=== PATIENT | female | born 1950 | race Caucasian/White ===

== ENCOUNTER → 2021-11-18 10:53 | Outpatient (BNVA) | payer MEDICARE, BC, SELFPAY | PROVIDERS: Family Provider Family Medicine Adult Medicine; Visit Provider Internal Medicine Pulmonary Disease | DX: J44.9 Chronic obstructive pulmonary disease, unspecified (principal); Z71.6 Tobacco abuse counseling; R91.1 Solitary pulmonary nodule; F17.210 Nicotine dependence, cigarettes, uncomplicated | CPT/HCPCS: 99204 ==

== ENCOUNTER 2021-11-24 10:55 | Outpatient (CLI) | payer MEDICARE, BC, SELFPAY ==
--- NOTE | 2021-11-24 12:36 | PFTS_ITS ---
Date of Study:11/24/21 Date of Dictation: MECHANICS: Forced vital capacity (FVC) is normal. Forced expiratory volume in one second (FEV1) is reduced. FEV1/FVC is reduced. FLOW VOLUME LOOP: Reduced flow at all lung volumes with significant scooping. LUNG VOLUMES: Total lung capacity (TLC) is increased. Residual volume (RV) is increased. DIFFUSING CAPACITY FOR CARBON MONOXIDE: Severely reduced. INTERPRETATION: The postbronchodilator spirometry is consistent with moderate airflow obstruction. There is no significant postbronchodilator response. Lung volumes are consistent with hyperinflation and air trapping. Gas exchange (DLCO) is severely reduced. The reduction in DLCO is disproportionate to reduction in spirometry. MTDD
== END 2021-11-24 10:56 | disposition home or self-care (01) ==
LOC: RT 11:02
PROVIDERS: Visit Provider Internal Medicine Pulmonary Disease
DX: R91.1 Solitary pulmonary nodule (principal)
CPT/HCPCS: 94060; 94726; 94729

== ENCOUNTER 2021-12-06 07:08 | Day surgery (SDC) | payer MEDICARE, BC, SELFPAY ==
[2021-11-25 10:31] VITALS: BMI 16.0
[2021-12-05 09:59] VITALS: BMI 16.0
[2021-12-06] VITALS (7 sets, daily range): BP systolic 100–182; BP diastolic 57–88; PULSE 78–86; RESP 16–20; TEMP 36.2–37.1; O2SAT 90–99
--- NOTE | 2021-12-06 | CT_ITS ---
Guided Bronchoscopy Planning CT images; total exam DLP: 946.84 mGy-cm MTDD
--- NOTE | 2021-12-06 05:36 | P.ANESASSM_ITS ---
Pre-Anesthetic Assessment Height/Weight: Height 1.63 m Weight 42.184 kg Operation Date: 12/06/21 09:30 Proposed Procedures p Tres(Not Applicable) - Chucho Mendiola MD s Darius(Not Applicable) - Chucho MarquezrMD Social Tobacco Pulmonary Chronic Obstructive Pulmonary Disease and Exertional Dyspnea 11/24/21 PFTs INTERPRETATION: The postbronchodilator spirometry is consistent with moderate airflow obstruction.? There is no significant postbronchodilator response. Lung volumes are consistent with hyperinflation and air trapping. Gas exchange (DLCO) is severely reduced.? The reduction in DLCO is disproportionate to reduction in spirometry. Hemoptysis Weight loss edema left axilla CT 11/11/21 Summarized in Doctor Datar's note Supplemental Info 11/11/21 CT Chest: 1. Centrally necrotic mass in the anteromedial left upper lobe and prevascular space of the mediastinum, with mild mediastinal adenopathy, most consistent with primary lung neoplasm.? PET/CT imaging is recommended. 2. Individualized dose optimization techniques were used for this CT Neuropsych Transient Ischemic Attack (Recent TIA? with vision loss, weakness, fatigue, dyspraxia ) Medications/Allergies Home Medications Medication Instructions Recorded Confirmed Last Taken Type amlodipine 5 mg tablet 5 mg PO DAILY 11/18/21 12/02/21 Unknown History clonazepam 1 mg tablet 1 mg PO TID PRN 11/18/21 12/02/21 Unknown History fluconazole 100 mg tablet 100 mg PO DAILY 11/18/21 12/02/21 Unknown History lisinopril 20 mg tablet See Rx Instructions PO BID 11/18/21 12/02/21 Unknown History metoprolol tartrate 25 mg tablet 25 mg PO DAILY 11/18/21 12/02/21 Unknown History pantoprazole 40 mg tablet,delayed 40 mg PO DAILY tab 11/18/21 12/02/21 Unknown History release promethazine 6.25 mg-codeine 10 5 ml PO Q6H PRN 11/18/21 12/02/21 Unknown History mg/5 mL syrup umeclidinium 62.5 mcg-vilanterol 1 inh INHALATION DAILY #60 ea 11/18/21 12/02/21 Unknown Rx 25 mcg/actuation powdr for inhalation (Anoro Ellipta) prednisone 20 mg tablet 20 mg PO DAILY 5 Days #5 tab 11/28/21 12/02/21 Unknown Rx aspirin 81 mg tablet,delayed 81 mg PO DAILY 12/02/21 12/05/21 12/04/21 History release Allergies Allergy/AdvReac Type Severity Reaction Status Date / Time levofloxacin [From Levaquin] Allergy Unknown Unknown Verified 12/02/21 09:08 theophylline Allergy Unknown Unknown Verified 12/02/21 09:08 [facility] Anesthesia Family History Father , young Cancer colon Mother , young Cancer breast Social History Smoking and tobacco status: current every day smoker Data Anesthesia Cardiac Studies: No Data to Display
--- NOTE | 2021-12-06 07:17 | ECG_ITS ---
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 Measurements Intervals [place] Rate: 74 P: 74 VA: 113 QRS: 85 QRSD: 85 T: 80 QT: 377 QTc: 420 Interpretive Statements SINUS RHYTHM WITH SHORT VA INTERVAL WITH OCCASIONAL SUPRAVENTRICULAR PREMATURE COMPLEXES No previous ECG available for comparison Electronically Signed On 12-07-2021 16:57:53 CDT by Eddie Villarreal M.D. [email or web address] Information Technologymercy health [id number]
[2021-12-06] MEDS: sodium chloride 0.9% 1,000 ML 30 ML IV (07:32)
--- NOTE | 2021-12-06 07:38 | W.PM.OPSUD ---
Surgery/Procedure H&P Update DATE OF PROCEDURE: December 06, 2021 DATE H&P PERFORMED: 11/18/21 CHANGES TO PREVIOUS DOCUMENTATION: Interim pt had PET/CT chest 12/03/2021: In the left upper lobe there is 5.5 x 6.2 cm centrally necrotic mass with early invasion of the mediastinum with SUV 16.3. This has high probability of representing malignancy and biopsy recommended. Secondary nodule in lingula measures 0.9 x 1.2 cm and is without significant uptake. This is much more likely to represent a benign finding. Plan is to do navigational guided biopsies and endobronchial surveillance of mediastinal/hilar lymph nodes PRIMARY INDICATION FOR PROCEDURE: Suspicious for malignancy PLANNED PROCEDURE: Operation Date: 12/06/21 09:30 Proposed Procedures p Veran(Not Applicable) - Chucho Mendiola MD s Ebus(Not Applicable) - Chucho Mendiola MD
--- NOTE | 2021-12-06 07:55 | ANES.PREANE2 ---
Pre-Anesthetic Assessment Height/Weight: Height 1.63 m Weight 42.184 kg Temp Pulse Resp BP Pulse Ox 98.8 F 86 20 H 182/88 98 12/06/21 07:27 12/06/21 07:27 12/06/21 07:27 12/06/21 07:27 12/06/21 07:27 Preop Diagnosis: Concern for malignancy Operation Date: 12/06/21 09:30 Proposed Procedures mariano Joshua(Not Applicable) - MD henry Robison(Not Applicable) - Chucho Mendoila MD Familial anesthetic complications: Mother and aunt and were brought back on table. Unknown cause. Patient very sensitive to medications. Was Beta Jonas taken within 24 hours: Yes Was Clonidine taken within 24 hours: N/A Last intake: Intake Last Liquid Date 12/05/21 Last Liquid Time 23:30 Last Solid Date 12/05/21 Last Solid Time 23:00 Social Tobacco and No alcohol Exam alert, oriented x 3, clear to auscultation bilaterally and regular rate & rhythm Airway Submandibular: within normal limits Cervical ROM: within normal limits Mallampati: Class II Dentition: partials Pulmonary Chronic Obstructive Pulmonary Disease, Exertional Dyspnea and Shortness of Breath Able to lay flat w/o SOB CV/HEM Coronary Artery Disease and Hypertension METS = 4 Hx of AR and MR per patient NSR on EKG today No stents per patient None reported Hepatic None reported GI None reported Metabolic None reported Musc/skel Osteoarthritis/DJD Neuropsych Transient Ischemic Attack (Transient Ischemic Attack (Recent TIA? with vision loss, weakness, fatigue, dyspraxia ) vs possible migraine per patient) Anesthetic Plan ASA status: 3 Anesthesia: Anesthesia Evaluation and General Other: We discussed risk and benefits of general anesthesia including PONV, sore throat (sometimes severe), corneal abrasion, positioning and peripheral nerve injuries, life threatening allergic reaction, post operative ICU admission requiring prolonged intubation, stroke, heart attack, , and rare incidences of recall. Patient consents to proceed with general anesthesia. Plan non- MH triggering anesthetic. Risk of > 500 ml blood loss (7ml/kg in children): No Medications/Allergies Home Medications Medication Instructions Recorded Confirmed Last Taken Type amlodipine 5 mg tablet 5 mg PO DAILY 11/18/21 12/02/21 12/06/21 History clonazepam 1 mg tablet 1 mg PO TID PRN 11/18/21 12/02/21 12/05/21 History lisinopril 20 mg tablet 10 mg PO BID 11/18/21 12/06/21 12/05/21 History metoprolol tartrate 25 mg tablet 12.5 mg PO BID 11/18/21 12/06/21 12/06/21 History pantoprazole 40 mg tablet,delayed 40 mg PO DAILY tab 11/18/21 12/02/21 12/05/21 History release promethazine 6.25 mg-codeine 10 5 ml PO Q6H PRN 11/18/21 12/02/21 Unknown History mg/5 mL syrup umeclidinium 62.5 mcg-vilanterol 1 inh INHALATION DAILY #60 ea 11/18/21 12/06/21 12/06/21 Rx 25 mcg/actuation powdr for inhalation (Anoro Ellipta) aspirin 81 mg tablet,delayed 81 mg PO DAILY 12/02/21 12/05/21 12/04/21 History release prednisone 20 mg tablet 5 mg PO DAILY 12/06/21 12/06/21 12/05/21 History Allergies Allergy/AdvReac Type Severity Reaction Status Date / Time levofloxacin [From Levaquin] Allergy Unknown Unknown Verified 12/02/21 09:08 theophylline Allergy Unknown Unknown Verified 12/02/21 09:08 codeine Allergy ADR-Vomitin Verified 12/06/21 07:16 g Current Medications Generic Name Dose Route Start Last Admin Trade Name Freq PRN Reason Stop Dose Admin Sodium Chloride 1,000 mls @ 30 mls/hr 12/06/21 07:15 12/06/21 07:32 Sodium Chloride 0.9% IV 12/07/21 07:14 30 mls/hr .Q24H BEVERLY Administration PFSH Anesthesia Family History Father , young Cancer colon Mother , young Cancer breast Social History Smoking and tobacco status: current every day smoker Data Anesthesia Cardiac Studies: No Data to Display
[2021-12-06] MEDS: cetacaine Spray 5 gm Can 1 SPRAY TOPICAL (08:20)
--- NOTE | 2021-12-06 09:58 | XR_ITS ---
WS: [id number] Exam: XR chest 1V portable [id number] Date/Time of Exam: 12/06/2021 10:11 AM Reason For Exam: pnemonia No previous studies. An approximately 10 cm left hilar mass is noted. There is also a 2 cm nodular density seen in the lef t lower lung zone. The lungs are hyperinflated. No pleural effusions noted. The superior mediastinum is not widened. Several leads superimpose the chest. Significance is undetermined. XR/XR chest 1V portable [id number] IMPRESSION: 1. 10 cm left hilar mass suspicious for malignancy. There is also a second 2 cm nodular density in the left lower lung zone that could represent a satellite l esion or nipple shadow. 2. Pulmonary hyperinflation with coarsening of interstitial markings most likel y indicating obstructive lung disease.
[2021-12-06] MEDS: lidocaine 1% INJ 20 mL XX (10:01)
--- NOTE | 2021-12-06 10:26 | P.OP_ITS ---
Operative Report Date of procedure: December 06, 2021 Pre-op diagnosis: Preop Diagnosis left upper lobe lesion suspicious for malignancy Post-op diagnosis: left upper lobe lesion suspicious for malignancy Procedure done: 1. Flexible bronchoscopy for airway inspection 2. Endobronchial biopsy of left upper lobe endobronchial lesion 3.Navigational bronchoscopy guided fine-needle aspiration/transbronchial biopsies of left upper lobe mass 4. Endobronchial ultrasound surveillance of mediastinal/hilar lymph nodes and trans bronchial needle aspiration of lymph nodes at station 11 L and station 7. 5. Control of bleeding. Surgeon: Chucho Mendiola MD Brief History: Seen patient in pulmonary clinic on 11/18/21: Ms. Rachael Anthony is a 71-year-old female with past medical history of COPD, chronic smoker referred by PCP Dr. Velazquez for lung mass seen on [facility] at [facility] when assessing hemoptysis comes and goes x 1 year, steroids and abx help.? currently taking steroids and abx.? Current cigarette smoker, 3ppd x 49 years.? Told in her 40s that she had lung nodule, saw lung cancer specialist for 3 years with f/u scans, after [address] needed as no change, no biopsy needed.? Reports SOB on exertion; 10lb weight loss since July; decreased appetite.? Reports edema in left axilla when raising arms compared to right axilla, soreness noted in left axilla.? Reports having chickens x 30 years, cleaned out coops daily. ? Using Anoro, has used approx 10 years, working well previously but lately does not see difference when using and not using; does not have rescue inhaler.? Pre viously tried Trelegy but had a severe oral thrush.? Reports Hx TIA and occasional episodes she thinks are TIAs, 2 episodes in 3 days approx 1 week ago, with H/A, loss of vision on side, weakness, fatigue, inability to use correct words. I ordered PFTs, PET CT, given prescription for Anoro. Counseled her to try to quit smoking. PFTs on 11/24/2021 showed moderate airflow obstruction with postbronchodilator FEV1 1.63 L. There is no significant bronchodilator response. Lung volumes reveals moderate air trapping with RV 162% and TLC 128%. There is severe gas transfer defect. Constellation of findings suggestive of obstructive airway disease with decreased gas transfer consistent with emphysema. Additionally gas transfer defect appeared out of proportion to obstruction on spirometry-coex isting pulmonary vascular disease. PET/CT on 12/03/2021: In the left upper lobe there is 5.5 x 6.2 cm centrally necrotic mass with early invasion of the mediastinum with SUV 16.3.? This has high probability of representing malignancy and biopsy recommended.? Secondary nodule in lingula measures 0.9 x 1.2 cm and is without significant uptake.? This is much more likely to represent a benign finding. Today scheduled Flexible bronchoscopy for airway inspection, endobronchial biopsy of left upper lobe endobronchial lesion, followed by Navigational bronchoscopy guided fine-needle aspiration/transbronchial biopsies of left upper lobe mass,Endobronchial ultrasound surveillance of mediastinal/hilar lymph nodes and trans bronchial needle aspiration of lymph nodes at station 11 L and station 7 and control of bleeding. Procedure: Name of the procedure: Flexible bronchoscopy for airway inspection, endobronchial biopsy of left upper lobe endobronchial lesion, followed by Navigational bronchoscopy guided fine-needle aspiration/transbronchial biopsies of left upper lobe mass,Endobronchial ultrasound surveillance of mediastinal/hilar lymph nodes and trans bronchial needle aspiration of lymph nodes at station 11 L and station 7 and control of bleeding. Indication: left upper lobe there is 5.5 x 6.2 cm centrally necrotic mass with early invasion of the mediastinum with SUV 16.3. Anesthesia: General anesthesia. Local anesthesia: The yessica in the right and left mainstem bronchi were anesthetized with 1% lidocaine, 3 mL. Description of the procedure: The procedure was explained to the patient and the consent was obtained. The patient was brought to the OR. The patient underwent endotracheal intubation for general anesthesia. Following induction of general anesthesia, the bronchoscope was advanced through the ET tube. The lower trachea appeared normal, no endotracheal lesion was seen. The yessica was sharp. The yessica, the right and left mainstem bronchi are anesthetized with 1% lidocaine. In a systematic manner bilateral bronchial tree was then examined. The bronchoscope was then introduced into the right mainstem bronchus. The right upper lobe, right middle lobe and right lower lobe bronchi were examined up to the third subsegmental level and no abnormalities were identified. The bronchoscope was advanced into the left mainstem bronchus. The left upper lobe, lingula and left lower lobe bronchi were examined up to the third subsegmental level and endo bronchial lesion was identified in one of the subsegments in left upper apical segment. Endobronchial biopsies were performed from the left upper lobe. 3 specimens were obtained. Using navigational bronchoscope, took samples from left upper lobe mass with the help of forceps and then with fine needle aspiration cytology. samples sent in 2 seperate formalin bottles. 10 CC cold saline instilled and bleeding was c ontrolled. Bronchoalveolar lavage was performed from the left upper lobe. 60 mL of saline was instilled, fluid return was 15 mL. The fluid was cloudy. Then endobronchial ultrasound was introduced through the ET tube. Mediastinal and hilar lymphadenopathy was identified with the ultrasound. Transbronchial needle aspiration was performed from 4R, 7, lymph nodes. After making sure there is no active bleeding; Ebus scope was also with drawn and procedure terminated. Samples: 1. Bronchoalveolar lavage specimen from left upper lobe was sent for Cytology and Gram stain and culture 2. The endobronchial biopsies from left upper lobe are sent for histopathology. 3. The transbronchial forceps biopsies from left upper lobe are sent for histopathology. 4. Fine needle aspiration tissue from left upper lobe is sent in formalin bottle 4. The transbronchial needle aspiration of the station 4R and station 7 lymph node groups were sent for cytology Complications: There was no immediate complications. Postprocedure chest xray did not reveal any pneumothorax. The patient was extubated and brought to the PACU in stable condition. Patient is discharged home in stable condition with instructions to go to ER/911 If she has unsual chest pain/shortness of breath/hemotysis. Patient and her son verbalized understanding and agreed with the plan. I will call them once I have pathology results and will schedule as follow up appointment in 4 weeks for follow up. Related Problem List Diagnoses (1) Smoker: (2) Mass of upper lobe of left lung:
--- NOTE | 2021-12-06 15:23 | ANE.PACU2 ---
Inpatient post-anesthesia follow up: Airway intact: Yes Vital signs: Temperature 97.2 F Pulse Rate 78 Respiratory Rate 16 Blood Pressure 117/66 Pulse Oximetry 90 Oxygen Delivery Me thod Room Air Oxygen Flow Rate 2 Fraction of Inspir ed Oxygen Hydration adequate: Yes Nausea and vomiting: No Pain level: 2 Mental status: Baseline
[2021-12-12 10:28] LABS: Miscellaneous Test See Scanned Lab Rpt
== END 2021-12-06 11:10 | disposition home or self-care (01) ==
PROVIDERS: Visit Provider Internal Medicine Pulmonary Disease
PROC: 0BJ08ZZ Inspection of Tracheobronchial Tree, Via Natural or Artificial Opening Endoscopic (ICD-10-PCS; CPT 31622; principal; 2021-12-06 09:30)
PROC: BB4BZZZ Ultrasonography of Pleura (ICD-10-PCS; 2021-12-06 09:30)
DX: C34.92 Malignant neoplasm of unspecified part of left bronchus or lung (principal); J44.9 Chronic obstructive pulmonary disease, unspecified; F17.210 Nicotine dependence, cigarettes, uncomplicated; Z79.82 Long term (current) use of aspirin; Z80.3 Family history of malignant neoplasm of breast; Z80.0 Family history of malignant neoplasm of digestive organs; M19.90 Unspecified osteoarthritis, unspecified site; Z86.73 Personal history of transient ischemic attack (TIA), and cerebral infarction without residual deficits
CPT/HCPCS: 31624; 31627; 31629; 31652; 71045; 77011; 80503; 87070; 87205; 88108; 88305; 88307; 88309; 88342; 93005; J1200; J2370; J2405; J2704; J3010; J3490; J7030